=== PATIENT | female | born 1950 | race Caucasian/White ===

== ENCOUNTER → 2017-05-20 | Outpatient (CLI) | payer OTHER, MEDICARE | LOC: FIMAGING 08:49 | PROVIDERS: ATTEND Family Medicine | DX: Z12.31 Encounter for screening mammogram for malignant neoplasm of breast (principal) | CPT/HCPCS: G0202 ==

== ENCOUNTER → 2018-08-24 | Outpatient (CLI) | payer OTHER, MEDICARE | LOC: FIMAGING 13:55 | PROVIDERS: ATTEND Family Medicine | DX: Z12.31 Encounter for screening mammogram for malignant neoplasm of breast (principal) ==

== ENCOUNTER → 2018-10-05 | Outpatient (CLI) | payer OTHER, MEDICARE | LOC: BMCIMAGING 10:50 | PROVIDERS: ATTEND Family Medicine | DX: Z13.820 Encounter for screening for osteoporosis (principal); M81.0 Age-related osteoporosis without current pathological fracture; E78.5 Hyperlipidemia, unspecified; Z78.0 Asymptomatic menopausal state; Z79.899 Other long term (current) drug therapy ==